=== PATIENT | male | born 1995 | race Caucasian/White ===

== ENCOUNTER → 2017-08-18 | Outpatient (CLI) | payer OTHER ==
[~2017-08-18] MED LIST: ATEN-100 PO; CLON1 PO; ERGO50000 PO; INDO50CA PO; LEVO.025 PO; VIST25CA PO
--- NOTE | 2017-08-18 10:32 | RADRPT ---
EXAM DATE/TIME: 08/18/2017 09:23 [place] COMPARISON: No previous studies available for comparison. EXTERNAL COMPARISON : [facility], US ABDOMEN, COMPLETE January 31, 2012. INDICATIONS : Abnormal lab values. MEDICAL HISTORY : Hypertension. Fatty liver. Kidney stones. SURGICAL HISTORY : Lithotripsy. ENCOUNTER: Initial ACUITY: 1 day PAIN SCORE: 0/10 LOCATION: Abdomen. MEASUREMENTS: LIVER: 15.8 cm length COMMON DUCT: 3 mm RIGHT KIDNEY: 14.5 x 6.0 x 6.1 cm SPLEEN: 17.5 cm length FINDINGS: LIVER: Increased echotexture with a focal, 1 cm area of diminished echogenicity in the quadrate lobe possibl y representing some focal fatty sparing. COMMON DUCT: No intraluminal mass or stone visualized. GALLBLADDER: Contains no stones, demonstrates no wall thickening or pericholecystic fluid. PANCREAS: Basically obscured by overlying bowel gas. RIGHT KIDNEY: No hydronephrosis, stone or mass. SPLEEN: No focal lesion. CONCLUSION: 1. Diffusely increased hepatic echotexture characteristic of fatty infiltration. Possible focal, 1 cm area of focal fatty sparing in the quadrate lobe. 2. Splenomegaly. 3. Pancreas is obscured by overlying bowel gas. 4. Right kidney and the gallbladder are sonographically normal. Margarito Olivarez MD on August 18, 2017 at 10:23 Board Certified Radiologist. This report was verified electronically.
== END ==
LOC: HRAD 09:03
PROVIDERS: ATTEND Family Medicine
DX: R94.5 Abnormal results of liver function studies (principal)
CPT/HCPCS: 76705